=== PATIENT | female | born 1965 | race Caucasian/White ===

== ENCOUNTER 2020-06-27 09:18 | Emergency (ER) | payer OTHER ==
[2020-06-27 10:27] LABS: BASOPHIL 0.5 % (0-2); EOSINOPHIL 1.9 % (0-5); HGB 13.7 g/dl (12.5-16.0); LYMPHOCYTE 36.4 % (15-48); MCH 30.5 pg (25.0-31.0); MCHC 33.4 g/dL (32.0-36.0); MCV 91.3 fL (78.0-100.0); MONOCYTE 9.5 % (0-12); MPV 9.6 fL (6.0-9.5); NEUTROPHIL 51.1 % (41-80); NRBC 0; PLT 307 K/uL (150-400); RBC 4.49 M/uL (4.20-5.40); RDW 11.8 % (11.5-14.0); WBC 6.3 K/uL (4.0-10.5)
[2020-06-27 10:37] LABS: INR 1.1 (0.9-1.2); PROTHROMBIN TIME 13.5 SECONDS (11.4-13.6); PTT 32.5 SECONDS (22.2-34.7)
[2020-06-27 10:38] LABS: D-DIMER 0.44 ug/mLFEU (0.00-0.41)
[2020-06-27 10:55] LABS: ALBUMIN 3.8 g/dL (3.4-5.0); BILIRUBIN - TOTAL 0.4 mg/dL (0.2-1.0); BUN/CREAT RATIO (CALC) 15.9 RATIO; C-REACTIVE PROTEIN 1.5 mg/dL (<=0.90); CREATININE 0.69 mg/dL (0.51-0.95); GLOBULIN (CALCULATION) 4.1 g/dL; POTASSIUM 4.3 mmol/L (3.5-5.1); TOTAL PROTEIN 7.9 g/dL (6.4-8.2)
[2020-12-22] MEDS ORDERED: COZAAR100 MG PO (09:52)
[2020-12-22] MEDS ORDERED: AMLODIPINE BESYL5 MG PO (09:52)
[2020-12-22] MEDS ORDERED: LASIX20 MG PO (09:52)
[2020-12-22] MEDS ORDERED: PRAVASTATIN SOD20 MG PO (09:52)
[2020-12-22] MEDS ORDERED: MONTELUKAST SOD10 MG PO (09:52)
[2020-12-22] MEDS ORDERED: VENTOLIN HFA18 GM INH (09:53)
[2020-12-22] MEDS ORDERED: MAG-OXIDE 400M400 MG PO (09:54)
[2020-12-22] MEDS ORDERED: AIRDUO DIGIHAL1 EAC1 INH (09:54)
[2020-12-22] MEDS ORDERED: ZYRTEC10 M3 PO (09:55)
[2020-12-22] MEDS ORDERED: VITAMIN D310 MC2 PO (09:55)
[2020-12-26] MEDS ORDERED: EPINEPHRIN0.3 MG/0.3 IJ (11:36)
== END 2020-06-27 11:37 | disposition home or self-care (01) ==
LOC: FER 09:18
PROVIDERS: Emergency Medicine
DX: U07.1 COVID-19 (principal); M79.602 Pain in left arm; R00.2 Palpitations; I10 Essential (primary) hypertension; Z79.899 Other long term (current) drug therapy
CPT/HCPCS: 36415; 80053; 82728; 83615; 84484; 85025; 85379; 85610; 85730; 86140; 93005; U0002

== ENCOUNTER 2020-07-20 15:05 | Emergency (ER) | payer OTHER ==
[2020-07-20 18:17] LABS: BASOPHIL 0.6 % (0-2); EOSINOPHIL 1.5 % (0-5); HCT 45.9 % (37.0-47.0); HGB 15.5 g/dl (12.5-16.0); LYMPHOCYTE 33.5 % (15-48); MCH 30.5 pg (25.0-31.0); MCHC 33.8 g/dL (32.0-36.0); MCV 90.4 fL (78.0-100.0); MONOCYTE 6.9 % (0-12); MPV 10.2 fL (6.0-9.5); NEUTROPHIL 57.3 % (41-80); NRBC 0; PLT 292 K/uL (150-400); RBC 5.08 M/uL (4.20-5.40); RDW 12.1 % (11.5-14.0); WBC 10.8 K/uL (4.0-10.5)
[2020-07-20 18:34] LABS: BUN/CREAT RATIO (CALC) 23.1 RATIO; CREATININE 0.65 mg/dL (0.51-0.95); POTASSIUM 3.7 mmol/L (3.5-5.1)
[2020-07-20] MEDS ORDERED: PREDNISONE 20MG20 MG PO (19:07)
[2020-07-20] MEDS ORDERED: ZPAK PO (19:07)
[2020-12-22] MEDS ORDERED: PRAVASTATIN SOD20 MG PO (09:52)
[2020-12-22] MEDS ORDERED: MONTELUKAST SOD10 MG PO (09:52)
[2020-12-22] MEDS ORDERED: COZAAR100 MG PO (09:52)
[2020-12-22] MEDS ORDERED: AMLODIPINE BESYL5 MG PO (09:52)
[2020-12-22] MEDS ORDERED: LASIX20 MG PO (09:52)
[2020-12-22] MEDS ORDERED: VENTOLIN HFA18 GM INH (09:53)
[2020-12-22] MEDS ORDERED: AIRDUO DIGIHAL1 EAC1 INH (09:54)
[2020-12-22] MEDS ORDERED: MAG-OXIDE 400M400 MG PO (09:54)
[2020-12-22] MEDS ORDERED: VITAMIN D310 MC2 PO (09:55)
[2020-12-22] MEDS ORDERED: ZYRTEC10 M3 PO (09:55)
[2020-12-26] MEDS ORDERED: EPINEPHRIN0.3 MG/0.3 IJ (11:36)
== END 2020-07-20 19:51 | disposition home or self-care (01) ==
LOC: FER 15:05
PROVIDERS: Nurse Practitioner Family
DX: J06.9 Acute upper respiratory infection, unspecified (principal); I10 Essential (primary) hypertension; J45.909 Unspecified asthma, uncomplicated; Z88.2 Allergy status to sulfonamides
CPT/HCPCS: 36415; 71045; 80048; 85025; 85379; J1100

== ENCOUNTER → 2020-12-26 | Day surgery (SDC) | payer OTHER ==
[~2020-12-26] VITALS: Ht 171.4 cm; Wt 120.2 kg
[~2020-12-26] MED LIST: AIRDUO DIGIHAL1 EAC1 INH; AMLODIPINE BESYL5 MG PO; COZAAR100 MG PO; EPINEPHRIN0.3 MG/0.3 IJ; LASIX20 MG PO; MAG-OXIDE 400M400 MG PO; MONTELUKAST SOD10 MG PO; PRAVASTATIN SOD20 MG PO; PREDNISONE 20MG20 MG PO; VENTOLIN HFA18 GM INH; VITAMIN D310 MC2 PO; ZPAK PO; ZYRTEC10 M3 PO
== END | disposition home or self-care (01) ==
LOC: FAS 11:18
DX: Z12.11 Encounter for screening for malignant neoplasm of colon (principal); K62.1 Rectal polyp; K64.8 Other hemorrhoids; M19.90 Unspecified osteoarthritis, unspecified site; J45.909 Unspecified asthma, uncomplicated; E78.5 Hyperlipidemia, unspecified; I10 Essential (primary) hypertension; K58.9 Irritable bowel syndrome, unspecified; M06.9 Rheumatoid arthritis, unspecified; Z86.010 Personal history of colon polyps; Z86.16 Personal history of COVID-19; Z88.2 Allergy status to sulfonamides; Z91.030 Bee allergy status; Z91.018 Allergy to other foods; Z91.040 Latex allergy status; Z91.010 Allergy to peanuts; Z91.013 Allergy to seafood; Z79.899 Other long term (current) drug therapy
CPT/HCPCS: 93005; J2250; J2704; J7120